=== PATIENT | female | born 1940 | race Caucasian/White ===

== ENCOUNTER 2022-02-25 09:44 | Emergency (ER) | payer MEDICARE, BC ==
[2022-02-25] MEDS ORDERED: Acetaminophen 500 MG TAB ONE (10:52)
== END 2022-02-25 11:50 | disposition home or self-care (01) ==
LOC: CSHERS 09:44
DX: S00.03XA Contusion of scalp, initial encounter (principal); E78.5 Hyperlipidemia, unspecified; W01.0XXA Fall on same level from slipping, tripping and stumbling without subsequent striking against object, initial encounter
CPT/HCPCS: 70450